=== PATIENT | female | born 1930 | race African-American/Black ===

== ENCOUNTER → 2018-06-27 | Outpatient (CLI) | payer OTHER ==
--- NOTE | 2018-06-27 19:02 | PCVCIMAG ---
EXAM: BILATERAL SUPERFICIAL VENOUS DUPLEX INDICATION: Leg pain and swelling. FINDINGS: Right leg: No thrombus in the common femoral vein. 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 No prior study available for comparison. Right Great Saphenous Vein: At the saphenofemoral junction the diameter is 6.1 mm, in the mid thigh it is 7.0 mm, and in the calf it is 4.4 mm. There is not significant venous insufficiency/reflux throughout. Venous insufficiency/reflux duration is 0.3 seconds. Right Small Saphenous Vein: At the saphenopopliteal junction the diameter is 1.9 mm, and in the calf it is 4.1 mm. There is not significant venous insufficiency/reflux throughout. Venous insufficiency/reflux duration is 0 seconds. There is a cranial extension present. Left leg: No thrombus in the common femoral, main femoral, or popliteal veins. These veins are compressible. Left Great Saphenous Vein: At the saphenofemoral junction the diameter is 6.0 mm, in the mid thigh it is 4.2 mm, and in the calf it is 4.7 mm. There is not significant venous insufficiency/reflux throughout. Venous insufficiency/reflux duration is 0 seconds. Left Small Saphenous Vein: At the saphenopopliteal junction the diameter is 2.6 mm, and in the calf it is 2.0 mm. There is not significant venous insufficiency/reflux throughout. Venous insufficiency/reflux duration is 0 seconds. There is not a cranial extension present. IMPRESSION: Right Great Saphenous Vein: No significant venous insufficiency/reflux is present as noted above. Right Small Saphenous Vein: No significant venous insufficiency/reflux is present as noted above. Left Great Saphenous Vein: No significant venous insufficiency/reflux is present as noted above. Left Small Saphenous Vein: No significant venous insufficiency/reflux is present as noted above. Incidental note is made of chronic appearing moderate nonocclusive thrombus throughout the right main femoral vein and right popliteal vein. Further evaluation of the iliac veins with intravascular ultrasound evaluation to exclude pelvic outflow obstruction may be of value. LOC:[place] [id number]
== END | disposition home or self-care (01) ==
LOC: PCVCIMAG 14:02
PROVIDERS: ATTEND Family Medicine
DX: M79.89 Other specified soft tissue disorders (principal); R60.0 Localized edema
CPT/HCPCS: 93970

== ENCOUNTER → 2018-06-29 | Outpatient (CLI) | payer OTHER | END | disposition home or self-care (01) | LOC: PCVCCLINIC 10:49 | PROVIDERS: ATTEND Nuclear Medicine Nuclear Cardiology | DX: I82.511 Chronic embolism and thrombosis of right femoral vein (principal); R60.0 Localized edema; E78.00 Pure hypercholesterolemia, unspecified; E11.9 Type 2 diabetes mellitus without complications; I10 Essential (primary) hypertension; Z87.891 Personal history of nicotine dependence | CPT/HCPCS: G0463 ==